=== PATIENT | male | born 1955 | race Caucasian/White ===

== ENCOUNTER 2018-03-06 14:31 | Inpatient (IN) | payer MEDICARE ==
[~2018-03-06] VITALS: Ht 180.3 cm; Wt 85.0 kg
--- NOTE | ~2018-03-06 | EC ---
PATIENT:SOFYA MYERS DATE OF SERVICE: 03/06/18 SEX: M MEDICAL RECORD: [id number] DATE OF : [birth year] LOCATION:D. D.212 AGE OF PATIENT: 62 ADMISSION DATE: 03/06/18 REFERRING PHYSICIAN: INTERPRETING PHYSICIAN: JOSE ANTONIO SANTANA MD ECHOCARDIOGRAM REPORT ECHO CHARGES 5 ECHO LIMITED Date: 03/08/18 1 DOPPLER ECHO COLOR FLOW CLINICAL DIAGNOSIS: DYSPENS, RECENT CABG ECHOCARDIOGRAPHIC MEASUREMENTS (adult normal given) AC root (d.<3.7cm) cm LV Septum d (<1.2 cm> cm Valve Excursion cm LV Septum (systole) cm Left Atria (s.<4.0cm> cm LVPW d(<1.2cm) cm RV (d.<2.3cm) cm LVPW (sytole) cm LV diastole(<5.6CM) cm MV E-F(>70mm/sec) cm LV systole cm LVOT Diameter cm MV exc.(>10mm) cm Est.ejection fraction (50-75%) % DOPPLER: LVIT cm/sec A 73 cm/sec E 58 cm/sec LA cm/sec RVSP mmHg LVOT 136 cm/sec AOP1/2T m/s Asc. Ao 156 cm/sec RVOT cm/sec RA cm/sec PA cm/sec AV Gradient Peak 9.7 mmHg AV Mean 6.7 mmHg AV Area cm MV Gradient Peak 2.5 mmHg MV Mean 1.2 mmHg MV Area cm COMMENTS: Test Specialist: Bee ROSADO Metallurgical Analyst: Sam Santana TAPE# PACS Pericardial Effusion N DATE OF SERVICE: 03/08/2018 PROCEDURE: Echocardiogram. FINDINGS: 1. Left ventricular chamber size is within normal limits. Left ventricular systolic function is lower limits of normal. Overall ejection fraction is 45% to 50%. 2. Left atrium, right atrium and right ventricular chamber sizes are within normal limits. ECHOCARDIOGRAM REPORT [id number] SOFYA MYERS 3. Valvular structures have normal structure and motion. 4. Doppler interrogation reveals only trace tricuspid regurgitation, no other valvular insufficiency or stenosis. 5. No evidence of pericardial effusion or left ventricular thrombus. 6. Pleural effusion is present on the left. TRANSINT:[id number] Voice Confirmation ID: [id number] DOCUMENT ID: [id number] JOSE ANTONIO SANTANA MD at 1950 CC: [id number] DICTATION DATE: 03/08/18 1548 COMBINATION MACHINE TOOL OPERATOR: 03/08/18 1553 ADM IN [place] [id number] [place] [id number]
--- NOTE | ~2018-03-06 | CN ---
PATIENT NAME:SOFYA SUTHERLAND MEDICAL RECORD: [id number] : 55 LOCATION:D. D.2127 ADMIT DATE: 03/06/18 ACCOUNT: [id number] CONSULTING PHYSICIAN: ROXANE CHACON MD REFERRING PHYSICIAN: BERENICE ROY MD DATE OF CONSULTATION: 03/09/2018 CONSULT REQUESTING PHYSICIAN: Mariah Olson MD REASON FOR CONSULTATION: Pneumonia, acute exacerbation of chronic obstructive pulmonary disease. HISTORY OF PRESENT ILLNESS: Mr. Sutherland is a 62-year-old gentleman who has CABG on 02/22/2018 at [place], [place]. The patient was discharged home. For the last couple of days, he has a fever, coughing. He also has worsening shortness of breath. His sister is taking care of him and brought him to the ER. Found out the patient has pneumonia. Now, he is feeling a little bit better. Denies any chest pain. REVIEW OF SYSTEMS: As in history of present illness. PAST MEDICAL HISTORY: 1. COPD. 2. History of pneumonia. 3. Gastroesophageal reflux disease. 4. Depression. 5. Diabetes mellitus type 2. PAST SURGICAL HISTORY: 1. He has a recent CABG on 02/22/2018. 2. Foot and arm surgery in 1979. ALLERGIES: No known drug allergies. MEDICATION: [employer] is reviewed. PERSONAL AND SOCIAL HISTORY: The patient is a smoker. He quit it 9 years ago. He is a drinker for 40 years. FAMILY HISTORY: Significant for cardiovascular disease. PHYSICAL EXAMINATION: GENERAL: Now, the patient is lying comfortably. He is not in acute distress. VITAL SIGNS: The blood pressure is 111/62, pulse is 83, respirations 18, temperature 98.6, SPO2 is 94% on 2 liters nasal cannula. HEENT: Conjunctivae are pink. Sclerae are not icteric. NECK: Supple, no JVD. CHEST: The chest excursion is minimal on both sides. There are crackles at the bases. Wheeze on forceful expiration. HEART: Rhythm regular, normal sound, no murmur. ABDOMEN: Soft, bowel sounds present. No hepatosplenomegaly. RECTAL: Deferred. EXTREMITIES: No cyanosis, no clubbing, no pedal edema. SKIN: Warm, normal turgor. CENTRAL NERVOUS SYSTEM: The patient is awake and alert. There is no obvious CONSULT REPORT [id number] SFOYA SUTHERLAND cranial nerve abnormality. The gait was not tested. IMAGING: Chest radiograph, there are bibasilar infiltrate. There are moderate left-sided pleural effusion. LABORATORY DATA: CBC: WBC on admission was 18.6, hemoglobin 12.2, hematocrit 38.2, the platelet count is 341. Chemistry: Sodium 140, potassium 4.6, BUN is 12, creatinine 0.9, glucose 109. IMPRESSION: 1. Acute exacerbation of chronic obstructive pulmonary disease. 2. Pneumonia, which is bibasilar, possible hospital-acquired pneumonia. 3. Atelectasis, post coronary artery bypass graft. 4. Pleural effusion, possible parapneumonic. 5. Leukocytosis, secondary to pneumonia. 6. Status post coronary artery bypass graft. 7. Ex-smoker. RECOMMENDATION: 1. Discontinue Advair. Start him on albuterol/ipratropium nebulizer. 2. Brovana/budesonide nebulizer. 3. Methylprednisolone IV. 4. Continue vancomycin and meropenem, and start on Levaquin to added effect for Gram-negative rods. 5. Check decubitus film. If there is significant pleural effusion, we will proceed with the thoracentesis. 6. Follow up labs and chest radiograph. Dr. Olson, thank you for involving me in the care of Mr. Sutherland. TRANSINT:[id number] Voice Confirmation ID: [id number] DOCUMENT ID: [id number] ROXANE CHACON MD CC: [id number] DICTATION DATE: 03/09/18 160 ORDER PACKER OR PACKAGER: 03/09/18 1647 ADM IN [facility] [address] [place] [address]
[2018-03-06] MEDS ORDERED: LIPITOR40 MG PO (14:51)
[2018-03-06] MEDS ORDERED: LASIX40 MG PO (14:51)
[2018-03-06] MEDS ORDERED: AUGMENTIN 875-11 TAB PO (14:52)
[2018-03-06] MEDS ORDERED: ELIQUIS5 MG PO (14:53)
[2018-03-06] MEDS ORDERED: GLUCOPHAGE500 MG PO (14:53)
[2018-03-06] MEDS ORDERED: METOPROLOL TART50 MG PO (14:53)
[2018-03-06] MEDS ORDERED: PREDNISONE1 MG PO (14:54)
[2018-03-06] MEDS ORDERED: BAYER CHEWABLE81 MG PO (14:54)
[2018-03-06] MEDS ORDERED: LANTUS INSULIN10 ML SC (14:54)
[2018-03-06] MEDS ORDERED: ZANTAC150 MG PO (14:54)
[2018-03-06] MEDS ORDERED: DULERA 100 MCG8.8 GM INH (14:55)
[2018-03-06] MEDS ORDERED: CALCIUM 500 + D1 TAB PO (14:55)
[2018-03-06] MEDS ORDERED: VITAMIN D2000 UNIT PO (14:55)
[2018-03-06] MEDS ORDERED: OMEPRAZOLE40 MG PO (14:55)
[2018-03-06] MEDS ORDERED: SPIRIVA RESPIMAT4 G1 INH (14:56)
[2018-03-06 15:12] LABS: BASOPHILS 0.1 % (0-2); EOSINOPHILS 1.2 % (0-7); HEMATOCRIT 38.2 % (42.0-54.0); HEMOGLOBIN 12.2 g/dL (13.5-17.5); IMMATURE GRANULOCYTES 0.3 % (0-5); MCH 28.1 pg (26.0-34.0); MCHC 31.9 g/dL (31.0-37.0); MEAN PLATELET VOLUME 8.8 fL (7.4-10.4); MONOCYTES 7.3 % (2-11); NEUTROPHILS 78.1 % (40-80); PLATELET COUNT 341 10x3/uL (130-400); RBC 4.34 10x6/uL (4.20-6.10); RDW 15.6 % (11.5-14.5); WBC 18.6 10x3/uL (4.8-10.8)
[2018-03-06 15:25] VITALS: BP 120/72
[2018-03-06 15:31] LABS: ALBUMIN 3.1 g/dL (3.4-5.0); ALKALINE PHOSPHATASE 128 U/L (46-116); ALT (SGPT) 391 U/L (10-68); BILIRUBIN - TOTAL 0.56 mg/dL (0.2-1.3); CALC OSMOLALITY 277 mosm/kg (275-300); CALCIUM 8.9 mg/dL (8.5-10.1); CARBON DIOXIDE 32.3 mmol/L (21.0-32.0); CHLORIDE - SERUM 100 mmol/L (98-107); CREATININE - SERUM 1.1 mg/dL (0.6-1.3); GLUCOSE 124 mg/dL (74-106); POTASSIUM - SERUM 4.7 mmol/L (3.5-5.1); PROTEIN - SERUM 7.7 g/dL (6.4-8.2); SODIUM 137 mmol/L (136-145); UREA NITROGEN 20 mg/dL (7-18); eGFR NON AFRICAN AMERICAN 72 mL/min (90-120)
[2018-03-06 15:48] LABS: CKMB 0.9 U/L (0.0-3.6); CREATINE KINASE 41 UL (21-232)
[2018-03-06 15:50] LABS: TROPONIN-I < 0.017 ng/mL (0.000-0.060)
[2018-03-06 15:55] VITALS: BP 120/72
[2018-03-06 17:26] VITALS: BP 129/78
[2018-03-06 19:06] VITALS: BP 132/73
[2018-03-07] VITALS: BP 115/70
[2018-03-07 04:30] VITALS: BP 121/68
[2018-03-07 07:42] VITALS: BP 126/78
[2018-03-07 11:28] VITALS: BP 130/71
[2018-03-07 15:40] VITALS: BP 138/70
[2018-03-07 18:00] LABS: APPEARANCE CLEAR (CLEAR); BILIRUBIN NEGATIVE (NEGATIVE); COLOR YELLOW (YELLOW); GLUCOSE NEGATIVE (NEGATIVE); KETONE NEGATIVE (NEGATIVE); NITRITE NEGATIVE (NEGATIVE); PROTEIN NEGATIVE (NEGATIVE); UROBILINOGEN NORMAL (NORMAL)
[2018-03-07 20:12] VITALS: BP 119/60
[2018-03-08 00:43] VITALS: BP 128/74
[2018-03-08 04:33] LABS: BASOPHILS 0.2 % (0-2); EOSINOPHILS 2.5 % (0-7); HEMATOCRIT 37.7 % (42.0-54.0); HEMOGLOBIN 11.9 g/dL (13.5-17.5); IMMATURE GRANULOCYTES 0.3 % (0-5); LYMPHOCYTES 20.7 % (15-50); MCH 28.1 pg (26.0-34.0); MCHC 31.6 g/dL (31.0-37.0); MCV 89.1 fL (80.0-100.0); MEAN PLATELET VOLUME 9.3 fL (7.4-10.4); MONOCYTES 11.5 % (2-11); NEUTROPHILS 64.8 % (40-80); RBC 4.23 10x6/uL (4.20-6.10); RDW 15.5 % (11.5-14.5)
[2018-03-08 04:44] LABS: PLATELET COUNT 481 10x3/uL (130-400)
[2018-03-08 04:56] LABS: ALBUMIN 2.9 g/dL (3.4-5.0); ANION GAP 9.9 mmol/L (8-16); BILIRUBIN - TOTAL 0.62 mg/dL (0.2-1.3); CALCIUM 8.5 mg/dL (8.5-10.1); CARBON DIOXIDE 31.3 mmol/L (21.0-32.0); CREATININE - SERUM 1.1 mg/dL (0.6-1.3); POTASSIUM - SERUM 4.2 mmol/L (3.5-5.1); PROTEIN - SERUM 7.6 g/dL (6.4-8.2)
[2018-03-08 05:51] VITALS: BP 138/75
[2018-03-08 07:49] VITALS: BP 137/71
[2018-03-08 11:05] VITALS: BP 125/74
[2018-03-08 14:12] VITALS: Ht 180.3 cm; Wt 85.0 kg
[2018-03-08 15:41] VITALS: BP 112/64
[2018-03-08 20:43] VITALS: BP 124/74
[2018-03-09 00:22] VITALS: BP 131/66
[2018-03-09 05:24] VITALS: BP 106/62
[2018-03-09 05:57] LABS: BASOPHILS 0.2 % (0-2); EOSINOPHILS 2.6 % (0-7); HEMATOCRIT 35.4 % (42.0-54.0); IMMATURE GRANULOCYTES 0.2 % (0-5); LYMPHOCYTES 22.5 % (15-50); MCH 27.5 pg (26.0-34.0); MCHC 31.1 g/dL (31.0-37.0); MCV 88.5 fL (80.0-100.0); MEAN PLATELET VOLUME 9.2 fL (7.4-10.4); MONOCYTES 10.8 % (2-11); NEUTROPHILS 63.7 % (40-80); PLATELET COUNT 483 10x3/uL (130-400); RDW 15.2 % (11.5-14.5)
[2018-03-09 06:15] LABS: ALBUMIN 2.8 g/dL (3.4-5.0); ALKALINE PHOSPHATASE 102 U/L (46-116); BILIRUBIN - TOTAL 0.64 mg/dL (0.2-1.3); CALC OSMOLALITY 279 mosm/kg (275-300); CARBON DIOXIDE 32.5 mmol/L (21.0-32.0); CHLORIDE - SERUM 103 mmol/L (98-107); CREATININE - SERUM 0.9 mg/dL (0.6-1.3); GLUCOSE 109 mg/dL (74-106); POTASSIUM - SERUM 4.6 mmol/L (3.5-5.1); PROTEIN - SERUM 6.3 g/dL (6.4-8.2); SODIUM 140 mmol/L (136-145); UREA NITROGEN 12 mg/dL (7-18); eGFR NON AFRICAN AMERICAN > 90 mL/min (90-120)
[2018-03-09 06:23] LABS: ALT (SGPT) 191 U/L (10-68)
[2018-03-09 06:29] LABS: WBC 10.3 10x3/uL (4.8-10.8)
[2018-03-09 07:45] VITALS: BP 123/70
[2018-03-09 11:24] VITALS: BP 125/72
[2018-03-09] MEDS ORDERED: PROZAC20 MG PO (13:00)
[2018-03-09 15:38] VITALS: BP 111/62
[2018-03-09 20:43] VITALS: BP 103/64
[2018-03-10 06:00] LABS: BASOPHILS 0.1 % (0-2); EOSINOPHILS 0 % (0-7); HEMATOCRIT 37.6 % (42.0-54.0); HEMOGLOBIN 11.8 g/dL (13.5-17.5); IMMATURE GRANULOCYTES 0.1 % (0-5); MCH 27.7 pg (26.0-34.0); MCHC 31.4 g/dL (31.0-37.0); MCV 88.3 fL (80.0-100.0); MEAN PLATELET VOLUME 9.4 fL (7.4-10.4); MONOCYTES 0.8 % (2-11); RBC 4.26 10x6/uL (4.20-6.10); RDW 15.2 % (11.5-14.5); WBC 10.2 10x3/uL (4.8-10.8)
[2018-03-10 06:08] LABS: PLATELET COUNT 614 10x3/uL (130-400)
[2018-03-10 06:33] VITALS: BP 136/72
[2018-03-10 06:34] LABS: ALKALINE PHOSPHATASE 119 U/L (46-116); ALT (SGPT) 184 U/L (10-68); BILIRUBIN - TOTAL 0.56 mg/dL (0.2-1.3); CALCIUM 8.8 mg/dL (8.5-10.1); CARBON DIOXIDE 29.2 mmol/L (21.0-32.0); CHLORIDE - SERUM 101 mmol/L (98-107); CREATININE - SERUM 0.9 mg/dL (0.6-1.3); MAGNESIUM - SERUM 2.2 mg/dL (1.8-2.4); POTASSIUM - SERUM 4.7 mmol/L (3.5-5.1); SODIUM 137 mmol/L (136-145); UREA NITROGEN 14 mg/dL (7-18); eGFR NON AFRICAN AMERICAN > 90 mL/min (90-120)
[2018-03-10 06:35] LABS: CALC OSMOLALITY 278 mosm/kg (275-300); GLUCOSE 170 mg/dL (74-106); PROTEIN - SERUM 7.9 g/dL (6.4-8.2)
[2018-03-10 07:59] VITALS: BP 115/72
[2018-03-10 11:17] VITALS: BP 120/63
[2018-03-10 15:26] VITALS: BP 122/62
[2018-03-11 06:23] VITALS: BP 124/66
[2018-03-11 07:54] VITALS: BP 102/69
[2018-03-11 07:58] LABS: ALKALINE PHOSPHATASE 143 U/L (46-116); ALT (SGPT) 162 U/L (10-68); BILIRUBIN - TOTAL 0.32 mg/dL (0.2-1.3); CALC OSMOLALITY 286 mosm/kg (275-300); CALCIUM 8.5 mg/dL (8.5-10.1); CARBON DIOXIDE 28.3 mmol/L (21.0-32.0); CHLORIDE - SERUM 103 mmol/L (98-107); GLUCOSE 211 mg/dL (74-106); MAGNESIUM - SERUM 2.4 mg/dL (1.8-2.4); POTASSIUM - SERUM 4.2 mmol/L (3.5-5.1); PROTEIN - SERUM 7.6 g/dL (6.4-8.2); SODIUM 139 mmol/L (136-145); UREA NITROGEN 20 mg/dL (7-18); eGFR NON AFRICAN AMERICAN 80 mL/min (90-120)
[2018-03-11 08:03] LABS: APTT 34.6 SECONDS (22.8-39.4); INR 1.21 (0.85-1.17); PROTIME 14.9 SECONDS (11.6-15.0)
[2018-03-11 08:31] LABS: HEMATOCRIT 33.9 % (42.0-54.0); HEMOGLOBIN 10.8 g/dL (13.5-17.5); LYMPHOCYTES 5.3 % (15-50); MCHC 31.9 g/dL (31.0-37.0); MCV 87.8 fL (80.0-100.0); MEAN PLATELET VOLUME 9.1 fL (7.4-10.4); PLATELET COUNT 679 10x3/uL (130-400); RBC 3.86 10x6/uL (4.20-6.10); RDW 14.4 % (11.5-14.5)
[2018-03-11 08:32] LABS: WBC 18.3 10x3/uL (4.8-10.8)
[2018-03-11 11:04] VITALS: BP 128/73
[2018-03-11 15:01] VITALS: BP 116/65
[2018-03-11 20:00] VITALS: BP 119/60
[2018-03-12 04:00] VITALS: BP 124/64
[2018-03-12 04:38] LABS: BASOPHILS 0 % (0-2); EOSINOPHILS 0.1 % (0-7); HEMATOCRIT 32.7 % (42.0-54.0); HEMOGLOBIN 10.1 g/dL (13.5-17.5); IMMATURE GRANULOCYTES 0.3 % (0-5); LYMPHOCYTES 6.5 % (15-50); MCH 27.4 pg (26.0-34.0); MCHC 30.9 g/dL (31.0-37.0); MCV 88.6 fL (80.0-100.0); MEAN PLATELET VOLUME 8.8 fL (7.4-10.4); MONOCYTES 3.1 % (2-11); PLATELET COUNT 575 10x3/uL (130-400); RBC 3.69 10x6/uL (4.20-6.10); RDW 15.1 % (11.5-14.5); WBC 14.3 10x3/uL (4.8-10.8)
[2018-03-12 04:55] LABS: ALBUMIN 2.7 g/dL (3.4-5.0); ALKALINE PHOSPHATASE 157 U/L (46-116); ALT (SGPT) 162 U/L (10-68); BILIRUBIN - TOTAL 0.27 mg/dL (0.2-1.3); CALC OSMOLALITY 286 mosm/kg (275-300); CALCIUM 7.9 mg/dL (8.5-10.1); CARBON DIOXIDE 33.4 mmol/L (21.0-32.0); CHLORIDE - SERUM 102 mmol/L (98-107); CREATININE - SERUM 0.9 mg/dL (0.6-1.3); GLUCOSE 220 mg/dL (74-106); MAGNESIUM - SERUM 2.2 mg/dL (1.8-2.4); POTASSIUM - SERUM 4.8 mmol/L (3.5-5.1); PROTEIN - SERUM 6.7 g/dL (6.4-8.2); SODIUM 139 mmol/L (136-145); UREA NITROGEN 19 mg/dL (7-18); eGFR NON AFRICAN AMERICAN > 90 mL/min (90-120)
[2018-03-12 08:07] VITALS: BP 99/65
[2018-03-12 10:54] VITALS: BP 114/76
[2018-03-12 15:11] VITALS: BP 121/69
[2018-03-12 20:26] VITALS: BP 125/74
[2018-03-13 00:58] VITALS: BP 138/73
[2018-03-13 06:36] LABS: BASOPHILS 0 % (0-2); EOSINOPHILS 0 % (0-7); HEMATOCRIT 33.1 % (42.0-54.0); HEMOGLOBIN 10.3 g/dL (13.5-17.5); IMMATURE GRANULOCYTES 0.3 % (0-5); LYMPHOCYTES 9.7 % (15-50); MCH 27.3 pg (26.0-34.0); MCHC 31.1 g/dL (31.0-37.0); MCV 87.8 fL (80.0-100.0); MEAN PLATELET VOLUME 9.4 fL (7.4-10.4); MONOCYTES 6.2 % (2-11); NEUTROPHILS 83.8 % (40-80); PLATELET COUNT 598 10x3/uL (130-400); RBC 3.77 10x6/uL (4.20-6.10); RDW 14.9 % (11.5-14.5)
[2018-03-13 06:51] VITALS: BP 150/97
[2018-03-13 07:06] LABS: ALBUMIN 2.7 g/dL (3.4-5.0); ALKALINE PHOSPHATASE 133 U/L (46-116); ALT (SGPT) 144 U/L (10-68); BILIRUBIN - TOTAL 0.33 mg/dL (0.2-1.3); CALC OSMOLALITY 285 mosm/kg (275-300); CALCIUM 8.1 mg/dL (8.5-10.1); CARBON DIOXIDE 33.4 mmol/L (21.0-32.0); CHLORIDE - SERUM 103 mmol/L (98-107); CREATININE - SERUM 0.7 mg/dL (0.6-1.3); GLUCOSE 197 mg/dL (74-106); PROTEIN - SERUM 6.6 g/dL (6.4-8.2); SODIUM 140 mmol/L (136-145); UREA NITROGEN 18 mg/dL (7-18); eGFR NON AFRICAN AMERICAN > 90 mL/min (90-120)
[2018-03-13 09:20] VITALS: BP 138/84
[2018-03-13 12:33] VITALS: BP 121/67
[2018-03-13 17:32] VITALS: BP 130/72
[2018-03-13 21:59] VITALS: BP 125/79
[2018-03-14] VITALS (7 sets, daily range): BP systolic 119–142; BP diastolic 55–80
[2018-03-14 05:53] LABS: BASOPHILS 0 % (0-2); EOSINOPHILS 0 % (0-7); HEMATOCRIT 35.5 % (42.0-54.0); HEMOGLOBIN 11.1 g/dL (13.5-17.5); IMMATURE GRANULOCYTES 0.3 % (0-5); LYMPHOCYTES 11.5 % (15-50); MCH 27.1 pg (26.0-34.0); MCHC 31.3 g/dL (31.0-37.0); MCV 86.8 fL (80.0-100.0); MEAN PLATELET VOLUME 9.4 fL (7.4-10.4); MONOCYTES 5.8 % (2-11); NEUTROPHILS 82.4 % (40-80); PLATELET COUNT 642 10x3/uL (130-400); RBC 4.09 10x6/uL (4.20-6.10); WBC 12.8 10x3/uL (4.8-10.8)
[2018-03-14 06:20] LABS: APTT 31.3 SECONDS (22.8-39.4); INR 1.08 (0.85-1.17); PROTIME 13.6 SECONDS (11.6-15.0)
[2018-03-14 06:32] LABS: ALBUMIN 2.7 g/dL (3.4-5.0); ALKALINE PHOSPHATASE 133 U/L (46-116); ALT (SGPT) 130 U/L (10-68); BILIRUBIN - TOTAL 0.35 mg/dL (0.2-1.3); CALC OSMOLALITY 282 mosm/kg (275-300); CALCIUM 8.1 mg/dL (8.5-10.1); CARBON DIOXIDE 32.6 mmol/L (21.0-32.0); CHLORIDE - SERUM 101 mmol/L (98-107); CREATININE - SERUM 0.8 mg/dL (0.6-1.3); GLUCOSE 198 mg/dL (74-106); POTASSIUM - SERUM 4.6 mmol/L (3.5-5.1); PROTEIN - SERUM 6.6 g/dL (6.4-8.2); SODIUM 137 mmol/L (136-145); UREA NITROGEN 21 mg/dL (7-18); eGFR NON AFRICAN AMERICAN > 90 mL/min (90-120)
[2018-03-14 11:06] LABS: PROTEIN - BODY FLUID 3.7 G/DL
[2018-03-15 06:21] VITALS: BP 134/78
[2018-03-15 06:57] LABS: ALBUMIN 2.9 g/dL (3.4-5.0); ALKALINE PHOSPHATASE 161 U/L (46-116); ALT (SGPT) 137 U/L (10-68); BILIRUBIN - TOTAL 0.32 mg/dL (0.2-1.3); CALCIUM 8.2 mg/dL (8.5-10.1); CARBON DIOXIDE 36.2 mmol/L (21.0-32.0); CHLORIDE - SERUM 99 mmol/L (98-107); GLUCOSE 241 mg/dL (74-106); POTASSIUM - SERUM 5.1 mmol/L (3.5-5.1); PROTEIN - SERUM 6.9 g/dL (6.4-8.2); SODIUM 136 mmol/L (136-145); eGFR NON AFRICAN AMERICAN 80 mL/min (90-120)
[2018-03-15 07:03] LABS: CALC OSMOLALITY 284 mosm/kg (275-300); UREA NITROGEN 27 mg/dL (7-18)
[2018-03-15 07:48] VITALS: BP 134/78
[2018-03-15 10:42] VITALS: BP 123/51
[2018-03-15 10:53] VITALS: BP 123/51
[2018-03-15 15:45] VITALS: BP 118/61
[2018-03-15 18:09] LABS: ACID FAST SMEAR Negative (()); AFB SPECIMEN PROCESSING Concentration (())
[2018-03-15 21:20] VITALS: BP 123/71
[2018-03-16 00:56] VITALS: BP 131/70
[2018-03-16 05:53] VITALS: BP 139/82
[2018-03-16 06:41] LABS: ALBUMIN 2.7 g/dL (3.4-5.0); ALKALINE PHOSPHATASE 124 U/L (46-116); ALT (SGPT) 106 U/L (10-68); BILIRUBIN - TOTAL 0.33 mg/dL (0.2-1.3); CARBON DIOXIDE 38.3 mmol/L (21.0-32.0); CHLORIDE - SERUM 101 mmol/L (98-107); CREATININE - SERUM 0.9 mg/dL (0.6-1.3); PROTEIN - SERUM 6.5 g/dL (6.4-8.2); SODIUM 138 mmol/L (136-145); UREA NITROGEN 25 mg/dL (7-18); eGFR NON AFRICAN AMERICAN > 90 mL/min (90-120)
[2018-03-16 06:42] LABS: BASOPHILS 0.1 % (0-2); CALC OSMOLALITY 279 mosm/kg (275-300); EOSINOPHILS 1.4 % (0-7); GLUCOSE 90 mg/dL (74-106); HEMATOCRIT 39.6 % (42.0-54.0); HEMOGLOBIN 12.6 g/dL (13.5-17.5); IMMATURE GRANULOCYTES 1.1 % (0-5); LYMPHOCYTES 24.3 % (15-50); MCH 27.9 pg (26.0-34.0); MCHC 31.8 g/dL (31.0-37.0); MCV 87.8 fL (80.0-100.0); MEAN PLATELET VOLUME 9.2 fL (7.4-10.4); MONOCYTES 12.1 % (2-11); PLATELET COUNT 594 10x3/uL (130-400); RBC 4.51 10x6/uL (4.20-6.10); RDW 15.5 % (11.5-14.5); WBC 14.1 10x3/uL (4.8-10.8)
[2018-03-16 06:43] LABS: POTASSIUM - SERUM 4.3 mmol/L (3.5-5.1)
[2018-03-16 07:56] VITALS: BP 113/65
[2018-03-16 12:27] VITALS: BP 111/72
[2018-03-16] MEDS ORDERED: PULMICORT0.5 MG/21 UPD (13:07)
[2018-03-16] MEDS ORDERED: PREDNISONE10 MG PO (13:08)
[2018-03-16 13:17] LABS: FUNGUS STAIN Final report (())
[2018-03-21 16:13] LABS: FUNGUS MYCOLOGY CULTURE Preliminary report (())
== END 2018-03-16 15:40 | disposition home health service (06) | DRG 177 ==
LOC: D.ER 14:31 → D.M2 16:53 → D.EDHOLD 16:53 → D.M2 18:55 → D.SDCHOLD 03-08 16:31 → D.M2 03-08 16:39
PROVIDERS: Emergency Medicine; Family Medicine; Internal Medicine Nephrology; Internal Medicine Pulmonary Disease; Radiology Diagnostic Radiology; Specialist
PROC: 0W9B3ZZ Drainage of Left Pleural Cavity, Percutaneous Approach (ICD-10-PCS; principal; 2018-03-14 08:45)
DX: J15.6 Pneumonia due to other Gram-negative bacteria (principal); I50.23 Acute on chronic systolic (congestive) heart failure; J44.0 Chronic obstructive pulmonary disease with (acute) lower respiratory infection; J44.1 Chronic obstructive pulmonary disease with (acute) exacerbation; J15.212 Pneumonia due to Methicillin resistant Staphylococcus aureus; I25.10 Atherosclerotic heart disease of native coronary artery without angina pectoris; I48.91 Unspecified atrial fibrillation; K21.9 Gastro-esophageal reflux disease without esophagitis; F32.9 Major depressive disorder, single episode, unspecified; E78.5 Hyperlipidemia, unspecified; E11.9 Type 2 diabetes mellitus without complications; G35 Multiple sclerosis; Z95.1 Presence of aortocoronary bypass graft; I11.0 Hypertensive heart disease with heart failure

== ENCOUNTER → 2018-04-06 07:31 | Outpatient (CLI) | payer MEDICARE ==
[2018-03-08 14:12] VITALS: BMI 25.4
[~2018-04-06 07:31] MED LIST: AUGMENTIN 875-11 TAB PO; BAYER CHEWABLE81 MG PO; CALCIUM 500 + D1 TAB PO; DULERA 100 MCG8.8 GM INH; ELIQUIS5 MG PO; GLUCOPHAGE500 MG PO; LANTUS INSULIN10 ML SC; LASIX40 MG PO; LIPITOR40 MG PO; METOPROLOL TART50 MG PO; OMEPRAZOLE40 MG PO; PREDNISONE1 MG PO; PREDNISONE10 MG PO; PROZAC20 MG PO; PULMICORT0.5 MG/21 UPD; SPIRIVA RESPIMAT4 G1 INH; VITAMIN D2000 UNIT PO; ZANTAC150 MG PO
== END | disposition home or self-care (01) ==
LOC: D.RT 07:31
DX: J18.9 Pneumonia, unspecified organism (principal)

== ENCOUNTER 2018-07-15 18:38 | Observation (INO) | payer MEDICARE ==
[~2018-07-15] VITALS: Ht 180.3 cm; Wt 89.1 kg
--- NOTE | ~2018-07-15 | CN ---
PATIENT NAME:SOFYA MYERS MEDICAL RECORD: [id number] : 55 LOCATION:DMerry D.2119 ADMIT DATE: 07/15/18 ACCOUNT: [id number] CONSULTING PHYSICIAN: RIANNA CAST MD REFERRING PHYSICIAN: NEREYDA DIANA MD DATE OF CONSULTATION: 07/16/2018 HISTORY OF PRESENT ILLNESS: A 62-year-old gentleman with known history of coronary artery disease, status post bypass grafting in February this year, was doing cardiac rehab, got home, had a fairly classic pleuritic-type chest pains. He has had one episode prior to this. Markedly worse lying flat. Relieved with setting forward. Also accompanied by dyspnea. It was worse with deep inspiration. We are asked to see him concerning his cardiovascular status. PAST MEDICAL HISTORY: Includes: 1. History of coronary artery disease, status post 2-vessel CABG. 2. Diabetes mellitus. 3. Hypertension. 4. Hyperlipidemia. 5. Severe chronic steroid dependent obstructive pulmonary disease. ALLERGIES: None known. MEDICATIONS: Regularly include Spiriva inhaler 2 puffs daily, atorvastatin 40 every day, metoprolol 50 b.i.d., aspirin 81 every day, Prozac 20 every day, Lasix 40 every day, Dulera 2 puffs b.i.d., insulin per scale, metformin 500 b.i.d. SOCIAL HISTORY: Quit smoking previously. Does have a set exercise program. Easily takes care of all his ADLs. REVIEW OF SYSTEMS: The patient reports easy bruising but reports no swollen glands. The patient reports no fever, no night sweats, no significant weight gain, no significant weight loss. No significant exercise tolerance. The patient reports no dry eyes, no irritation, no vision change. Patient reports no difficulty hearing and no ear pain. Patient reports no frequent nose bleeds or nose and sinus problems. Patient reports on arm pain on exertion. No shortness of breath while lying down. No history of heart murmur. Patient reports no cough, no wheezing or coughing up blood. Patient reports no abdominal pain, no vomiting. Normal appetite. No diarrhea and not vomiting blood. No nausea and no constipation. Patient reports no incontinence. No difficulty urinating. No hematuria. No increased frequency. Patient reports no muscle aches. No weakness, no arthralgias, no back pain. No swelling of the extremities. Patient reports no abnormal mole, no jaundice, no rashes. Reports no loss of consciousness. No weakness and no numbness. No seizures, dizziness, or headaches. The patient reports no depression, no sleep disturbance, feeling safe in a relationship and no alcohol abuse. Patient reports on fatigue. Reports no runny nose or sinus pressure. No itching, no hives, and no frequent sneezing. PHYSICAL EXAMINATION: GENERAL: Pleasant gentleman, in no acute distress. VITAL SIGNS: Blood pressure 109/76, pulse 72 and regular. HEENT: Normocephalic, atraumatic. NECK: No bruits are noted. CONSULT REPORT [id number] SOFYA MYERS HEART: Regular. I did not hear rub. LUNGS: Fairly good air excursion. Few expiratory wheezes. ABDOMEN: Soft, nontender. EXTREMITIES: Pulses 2+. No edema. NEUROLOGIC: Grossly intact. DIAGNOSTIC DATA: ECG shows no changes of pericarditis. IMPRESSION: Symptoms certainly worrisome for pericarditis. We will do a short course of colchicine 2-3 months as well as his chronic steroids. No contractions to discharge from my standpoint. TRANSINT:[id number] Voice Confirmation ID: [id number] DOCUMENT ID: [id number] RIANNA CAST MD CC: [id number] DICTATION DATE: 07/16/18 1111 STABLE HELPER: 07/16/18 1206 ADM IN [place] [id number] [place] [id number]
[2018-07-15 19:21] VITALS: BP 138/68
[2018-07-15 19:24] LABS: BASOPHILS 0.2 % (0-2); HEMATOCRIT 42.2 % (42.0-54.0); IMMATURE GRANULOCYTES 0.2 % (0-5); LYMPHOCYTES 36.2 % (15-50); MCH 28.6 pg (26.0-34.0); MCHC 33.2 g/dL (31.0-37.0); MCV 86.1 fL (80.0-100.0); MEAN PLATELET VOLUME 9.9 fL (7.4-10.4); MONOCYTES 9.3 % (2-11); NEUTROPHILS 52.1 % (40-80); RDW 14.4 % (11.5-14.5); WBC 10.3 10x3/uL (4.8-10.8)
[2018-07-15 19:29] LABS: PLATELET COUNT 214 10x3/uL (130-400)
[2018-07-15 19:42] LABS: ALBUMIN 3.4 g/dL (3.4-5.0); ALKALINE PHOSPHATASE 136 U/L (46-116); ALT (SGPT) 28 U/L (10-68); BILIRUBIN - TOTAL 0.21 mg/dL (0.2-1.3); CALC OSMOLALITY 284 mosm/kg (275-300); CALCIUM 8.9 mg/dL (8.5-10.1); CARBON DIOXIDE 29.8 mmol/L (21.0-32.0); CHLORIDE - SERUM 103 mmol/L (98-107); CREATININE - SERUM 1.1 mg/dL (0.6-1.3); POTASSIUM - SERUM 4.2 mmol/L (3.5-5.1); PROTEIN - SERUM 7.2 g/dL (6.4-8.2); SODIUM 141 mmol/L (136-145); UREA NITROGEN 14 mg/dL (7-18); eGFR NON AFRICAN AMERICAN 72 mL/min (90-120)
[2018-07-15 19:43] LABS: GLUCOSE 148 mg/dL (74-106)
[2018-07-15 19:54] LABS: CREATINE KINASE 126 UL (21-232); MAGNESIUM - SERUM 2.1 mg/dL (1.8-2.4)
[2018-07-15 19:56] LABS: TROPONIN-I < 0.017 ng/mL (0.000-0.060)
[2018-07-15 21:07] LABS: APTT 30.7 SECONDS (22.8-39.4); INR 0.9 (0.85-1.17); PROTIME 11.7 SECONDS (11.6-15.0)
--- NOTE | 2018-07-15 22:00 | NUR ---
PATIENT ARRIVED FROM ER VIA WHEEL CHAIR. PATIENT IS ALERT AND ORIENTED. RESPIRATIONS ARE EVEN AND UNLABORED. PATIENT COMPLAINED OF CHEST PAIN. PATIENT OFFERED A NITRO. PATIENT REFUSED. HE SAID "THEY DON'T WORK". OFFERED TO CALL TO GET PAIN MEDICATION. PATIENT SAID "NO, I WILL LET YOU KNOW LATER." PATIENT SAID "I DON'T BELIEVE I AM HAVING A HEART ATTACK." "I HAVE HAD 2 MAJOR HEART ATTACKS AND I DON'T FEEL THEM" "SO I CAN FEEL THIS, IT CAN'T BE A HEART ATTACK". NO S/S OF DISTRESS. NO OTHER C/O PAIN. CALL LIGHT WITHIN REACH. WILL CPOC.
[2018-07-15 22:56] VITALS: BP 126/72; Ht 180.3 cm; Wt 89.1 kg
[2018-07-15 23:50] VITALS: BP 126/72
[2018-07-16 03:45] VITALS: BP 123/62
--- NOTE | 2018-07-16 07:32 | NUR ---
ROUNDING DONE WITH PAITENT LAYING ON LEFT SIDE. ARUSES EASILY. DENIES NEEDS AT THIS TIME. ON HEART MONITOR SHOWING SB, HR 57. RIGHT HAND PIV SEEN SALINE LOCK. WILL MONITOR FOR ANY CHANGES.
[2018-07-16 08:00] VITALS: BP 109/76
--- NOTE | 2018-07-16 12:30 | NUR ---
DENIES NEEDS OR CHEST PAIN AT THIS TIME. WILL CONTINUE TO MONITOR.
[2018-07-16] MEDS ORDERED: COLCRYS0.6 MG PO (13:57)
--- NOTE | 2018-07-16 15:01 | NUR ---
AWAITING FINAL DISCHARGE PAPERWORK.
--- NOTE | 2018-07-16 17:27 | NUR ---
SALINE LOCK REMOVED WITH CATH TIP INTACT. VERBAL AND WRITTEN DISCHARGE INSTRUCITONS GIVEN TO PATIENT. DISCHARGED HOME VIA WHEELCHAIR.
--- NOTE | 2018-07-18 09:48 | MORECARE ---
CASE MANAGEMENT DISCHARGE SUMMARY PATIENT: SOFYA MYERS UNIT: [id number] ADM DATE: 07/15/18 AGE: 62 : 55 SEX: M ROOM/BED: D.2119 AUTHOR: ALIRIO HOLDER PHYSICIAN: REFERRING PHYSICIAN: NEREYDA DIANA MD DATE OF SERVICE: 07/18/18 Discharge Plan Patient Name: SOFYA MYERS Facility: [facility]:Center : 1955 Planned Disposition: Home Anticipated Discharge Date: 07/16/18 Discharge Date: 07/16/2018 Expected LOS: 1 Initial Reviewer: [email or web address] Initial Review Date: 07/18/2018 Generated: 07/18/18 10:48 am Patient Name: SOFYA MYERS Page [id number] at 0948 All edits/amendments must be made on the electronic document DICTATION DATE: 07/18/18947 METER INSTALLER AND REMOVER: DM 07/18/18947 RPT#: [id number] DC DATE:07/16/18 STATUS: DIS IN [facility] [address] [place] [address] END OF REPORT
== END 2018-07-16 17:27 | disposition home or self-care (01) ==
LOC: D.ER 18:38 → OBSVTIME 19:39 → D.EDHOLD 19:39 → D.M2 20:59
PROVIDERS: Family Medicine; ADMIT Family Medicine
DX: I25.119 Atherosclerotic heart disease of native coronary artery with unspecified angina pectoris (principal); Z95.5 Presence of coronary angioplasty implant and graft; Z95.1 Presence of aortocoronary bypass graft; Z87.891 Personal history of nicotine dependence; E11.65 Type 2 diabetes mellitus with hyperglycemia; I10 Essential (primary) hypertension; E78.5 Hyperlipidemia, unspecified; J44.9 Chronic obstructive pulmonary disease, unspecified; K21.9 Gastro-esophageal reflux disease without esophagitis

== ENCOUNTER → 2019-01-26 08:15 | Outpatient (CLI) | payer MEDICARE ==
[2018-07-15 22:56] VITALS: BMI 27.4
[~2019-01-26 08:15] MED LIST changes: +COLCRYS0.6 MG PO
== END | disposition home or self-care (01) ==
LOC: D.RT 08:15
PROVIDERS: ATTEND Internal Medicine Pulmonary Disease
DX: J90 Pleural effusion, not elsewhere classified (principal)

== ENCOUNTER → 2020-02-23 07:55 | Outpatient (CLI) | payer MEDICARE ==
[2018-07-15 22:56] VITALS: BMI 27.4
== END | disposition home or self-care (01) ==
LOC: D.HCCARDIO 07:55
PROVIDERS: ATTEND Internal Medicine Cardiovascular Disease
DX: I25.10 Atherosclerotic heart disease of native coronary artery without angina pectoris (principal)

== ENCOUNTER → 2020-11-27 07:35 | Outpatient (CLI) | payer MEDICARE, OTHER ==
[2020-09-10 12:38] VITALS: BMI 27.9
[~2020-11-27 07:35] MED LIST changes: +AZITHROMYCIN500 MG PO; +COZAAR25 MG PO; +FLOVENT HFA 11012 GM INH; +LANTUS INS100 UNITS/ SC; -LANTUS INSULIN10 ML SC; +NITROSTAT0.4 MG SL; +NOVOLOG100 UNIT/1 SQ; +PROAIR HFA8.5 G1 INH
== END | disposition home or self-care (01) ==
LOC: D.CT 07:35
PROVIDERS: ATTEND Nurse Practitioner
DX: K43.2 Incisional hernia without obstruction or gangrene (principal)